=== PATIENT | male | born 1975 | race Hispanic/Latino ===

== ENCOUNTER → 2017-05-30 | Outpatient (CLI) | payer OTHER ==
--- NOTE | 2017-05-30 18:07 | Diagnostic Imaging Report ---
PROCEDURE:ABDOMINAL ULTRASOUND COMPARISON:[facility], [place], US ABDOMEN COMPLETE, 02/01/2014, 8:35. INDICATIONS:ABD PAIN TECHNIQUE: Sanchez-scale and color sonographic images were obtained of the abdomen in transverse and sagittal planes. FINDINGS: Liver: 13.9 cm in length in right midclavicular line. Increased echogenicity. No masses. Main portal vein: 1.2 cm, hepatopetal flow Gallbladder: No stones, sludge, significant wall thickening, or pericholecystic fluid. Common Bile Duct: 0.4 cm. Sonographic Quinones's sign: Negative Right kidney: 11.8 cm. Left kidney: 12.7 cm. No hydronephrosis, stones, or focal lesions. Spleen: 10.6 and meter. No focal lesions. Pancreas: The visualized portions are unremarkable. Inferior vena cava: Patent Aorta: Within normal limits Ascites: None CONCLUSION: 1. Increased echogenicity of the hepatic parenchyma, consistent with fatty infiltration. Buzz Sena M.D. Dictated by: Buzz Sena M.D. on 05/30/2017 at 18:15 Electronically approved by: Buzz Sena M.D. on 05/30/2017 at 18:15
== END ==
LOC: US 16:12
PROVIDERS: ATTEND Family Medicine
DX: R10.9 Unspecified abdominal pain (principal)
CPT/HCPCS: 76700